=== PATIENT | male | born 1965 | race Caucasian/White ===

== ENCOUNTER → 2019-03-05 11:06 | Outpatient (CLI) | payer BC, SELFPAY ==
--- NOTE | 2019-03-05 11:13 | CA_ITS ---
APPROVED REPORT Bilateral Lower Extremity Venous Study for Charge Auditor: ANUEL Indications Lower Extremity Pain: Risk Factors Obesity RECENT HISTORY OF L TOTAL KNEE PT FELL RECENTLY Vein Imaging CFV (L): compressive, spontaneous, phasic, augmentation SFJ (L): compressive, spontaneous, phasic, augmentation FEM (L): compressive, spontaneous, phasic, augmentation POP (L): compressive, spontaneous, phasic, augmentation PTV (L): Compressible GSV (L): Compressible Peroneals (L):Compressible GAS (L): Compressible Conclusion No evidence of DVT or superficial thrombophlebitis in the veins scanned of the left lower extremity. Electronically signed by : Tesfaye Santana MD 03/05/2019 17:12:54
== END ==
PROVIDERS: PCP Internal Medicine; Visit Provider Orthopaedic Surgery
DX: M79.662 Pain in left lower leg (principal); M79.89 Other specified soft tissue disorders; Z96.652 Presence of left artificial knee joint
CPT/HCPCS: 93971

== ENCOUNTER 2019-03-22 14:30 | Outpatient (RCR) | payer BC, SELFPAY | END 2019-03-22 14:35 | disposition home or self-care (01) | LOC: PT 14:30 | PROVIDERS: Visit Provider Orthopaedic Surgery | DX: Z96.652 Presence of left artificial knee joint (principal); M25.562 Pain in left knee | CPT/HCPCS: 97010; 97014; 97110; 97140; 97163; G0283 ==

== ENCOUNTER → 2019-04-08 17:24 | Outpatient (CLI) | payer BC, SELFPAY ==
[2019-04-08 21:28] LABS: Amphetamine/Metha Screen,Urine Negative ng/mL (<1000); Barbiturates Screen,Urine Negative ng/mL (<200); Benzodiazepines Screen,Urine Negative ng/mL (<200); Cannabinoid Screen,Urine Positive ng/mL (<50); Cocaine Screen,Urine Negative ng/mL (<300); Methadone Screen,Urine Negative ng/mL (<300); Opiate Screen,Urine Negative ng/mL (<300); Phencyclidine Screen,Urine Negative ng/mL (<25)
== END ==
PROVIDERS: Visit Provider Nurse Practitioner Family
DX: Z79.899 Other long term (current) drug therapy (principal)
CPT/HCPCS: 80305

== ENCOUNTER → 2019-06-11 11:49 | Outpatient (CLI) | payer BC, SELFPAY ==
[2019-06-11 13:20] LABS: Anion Gap 13.4 mEq/L (5-15); Blood Urea Nitrogen 28 mg/dL (7-18); Calcium 8.8 mg/dL (8.5-10.1); Carbon Dioxide 27 mmol/L (21.0-32.0); Chloride 106 mmol/L (98-107); Creatinine,Serum 1.66 mg/dL (0.70-1.30); Estimated Glomerular Filt Rate 43 ml/min (>60); GFR (African American) 52 ML/MIN (>60); Glucose 113 mg/dL (74-106); Potassium 4.4 mmoL/L (3.5-5.1); Sodium 142 mmol/L (137-145)
== END ==
PROVIDERS: Visit Provider Nurse Practitioner Family
DX: Z01.818 Encounter for other preprocedural examination (principal)
CPT/HCPCS: 36415; 80048

== ENCOUNTER → 2019-06-21 09:26 | Outpatient (CLI) | payer BC, SELFPAY ==
--- NOTE | 2019-06-21 09:26 | CT_ITS ---
PROCEDURE: CT SOFT TISSUE NECK WO/W CON CLINICAL HISTORY: Nodule L neck Left-sided neck nodule. COMPARISON: No exams were available for comparison TECHNIQUE: Oral Contrast: None IV Contrast: Study is performed without and with contrast. 75 mL Optiray 350 utilized IV. Axial images obtained with sagittal and coronal reformats. All CT scans at the facility use one or more dose reduction, viz: automated exposure control, ma/kV adjustment per patient size (including targeted exams where dose is matched to indication, i.e. head), or iterative reconstruction technique. FINDINGS: A BB is placed on the left neck over the palpable nodule. The nasopharynx has an unremarkable appearance. There is some fullness in the left tonsillar region compared to the right side. The hypopharynx and larynx, glottic region and epiglottis have an unremarkable appearance. Unremarkable thyroid. No obvious base of tongue mass. The parotid and submandibular glands appear unremarkable. There is enlarged left jugular chain lymph node with multilocular central areas of decreased attenuation suggesting necrotic node. This glen area measures 4.5 by 2.3 by 3.6 cm. The node is superior to the level of the hyoid bone and posterior to the submandibular gland consistent with a level 2 node. There are other scattered smaller nodes present in the neck which are nonspecific. No upper mediastinal nodes are evident. Degenerative disc disease is present at C5-C6 and C6-C7. IMPRESSION: Left cervical adenopathy with a multilocular enlarged node in the uvula digastric region/level 2 node. There is slight fullness in the left palatine tonsil. Direct visualization is suggested. The enlarged node could be neoplastic or reactive. If the node does not decrease in size with antibiotic therapy then, fine needle aspiration could be performed with ultrasound guidance. Dictated by: Tesfaye Santana MD 06/22/2019 05:43 Electronically signed by Tesfaye Santana MD in [place] 06/22/2019 05:43
== END ==
PROVIDERS: PCP Nurse Practitioner Family; Visit Provider Nurse Practitioner Family
DX: R22.1 Localized swelling, mass and lump, neck (principal)
CPT/HCPCS: 70492; Q9967

== ENCOUNTER → 2019-07-06 12:27 | Outpatient (CLI) | payer BC, SELFPAY ==
--- NOTE | 2019-07-06 12:30 | US_ITS ---
PROCEDURE: US FNA LYMPH NODE CLINICAL INDICATION: ENLARGES LYMPH NODE Enlarged left-sided neck lymph nodes as seen on recent CT scan COMPARISON: CT SOFT TISSUE NECK WO/W CON from 06/21/2019 TECHNIQUE: Pre biopsy ultrasound performed of the left neck confirming multiple enlarged lymph nodes. The largest node the was approximately 3.8 by 2 cm which was targeted for biopsy. Following obtaining informed consent, using aseptic technique and local anesthesia with buffered lidocaine, fine-needle aspiration was performed of the nodule of interest using sonographic guidance. Four passes were made into the nodule with a 21 gauge needle. Specimen was submitted for cytology and RPMI. These 4 passes were done of the same node but put in 2 different solutions as a was a moderate amount of blood in the initial specimen FINDINGS: CYTOLOGY: Necrotic an atypical squamous epithelial cells suspicious for squamous cell carcinoma. Please see cytology report. Flow cytometry was performed showing no significant lymphoid immuno phenotypic abnormalities IMPRESSION: Uneventful ultrasound-guided fine needle aspiration of the left-sided neck lymph nodes showing suspicious findings The patient tolerated the procedure well without evidence of immediate complications and left the ultrasound suite in stable condition. Dictated by: Tesfaye Santana MD 07/12/2019 10:14 Electronically signed by Tesfaye Santana MD in [place] 07/12/2019 10:14
== END ==
PROVIDERS: PCP Nurse Practitioner Family; Visit Provider Nurse Practitioner Family
DX: R59.0 Localized enlarged lymph nodes (principal)
CPT/HCPCS: 10005; 76942; 87070; 87205

== ENCOUNTER 2019-08-05 06:01 | Day surgery (SDC) | payer BC, SELFPAY ==
[2019-08-05] VITALS (18 sets, daily range): BP systolic 104–164; BP diastolic 51–94; PULSE 77–109; RESP 13–26; TEMP 36.1–36.8; O2SAT 84–100; BMI 40.8
--- NOTE | 2019-08-05 06:24 | ECG_ITS ---
APPROVED REPORT Exam: Resting ECG HR:76 bpm ECG Measurements Heart Rate 76 AXES DC 140 P 9 QRSd 102 QRS -28 QT 420 T 36 QTc 472 <Conclusion> Normal sinus rhythm Normal ECG Electronically signed by : Eugene Katz, 08/07/2019 06:52:48
[2019-08-05 06:55] LABS: Basophils # 0.1 K/mm3 (0-0.2); Basophils % 0.5 % (0.1-2.0); Eosinophils # 0.2 K/mm3 (0.0-0.4); Eosinophils % 2.4 % (0.1-12.0); Hematocrit 41.1 % (42.0-52.0); Hemoglobin 13.3 g/dL (14.1-18.0); Lymphocytes # 2.1 K/mm3 (0.7-4.5); Mean Corpuscular HGB Conc 32.4 g/dL (31.8-35.4); Mean Corpuscular Hemoglobin 30.4 pg (27.0-31.2); Mean Corpuscular Volume 93.6 fl (80-94); Mean Platelet Volume 9.3 fl (7.4-10.4); Monocytes # 0.6 K/mm3 (0.1-1.0); Monocytes % 6.7 % (1.7-9.3); Neutrophils # 5.9 K/mm3 (1.8-7.8); Neutrophils % 66.5 % (37.0-80.0); Platelet Count 144 K/mm3 (142-424); Red Blood Count 4.39 M/mm3 (4.60-6.20); Red Cell Distribution Width 15.4 % (11.5-17.5); White Blood Count 8.8 K/mm3 (4.8-10.8)
[2019-08-05 06:58] LABS: Chloride 104 mmol/L (98-107); Potassium 3.2 mmoL/L (3.5-5.1); Sodium 136 mmol/L (136-145)
[2019-08-05 07:01] LABS: Anion Gap 8.2 mEq/L (5-15); Blood Urea Nitrogen 19 mg/dl (9-20); Carbon Dioxide 27 mmol/L (22.0-30.0); Creatinine Clearance Estimated 149 mL/min (50-200); Estimated Glomerular Filt Rate 69 ml/min (>60); GFR (African American) 84 ML/MIN (>60)
[2019-08-05 07:02] LABS: Calcium 8.6 mg/dl (8.4-10.2); Glucose 146 mg/dl (74-100)
--- NOTE | 2019-08-05 07:15 | HMH.ANESCL ---
[facility] Anesthesia Checklist - Patient Identification Patient Identification: Arm Band, Verbal (Name & ) - Structural Data Admitted From: Home Planned Operative Procedure/s: Tonsillectomy, laryngoscopy, esphagoscopy Consent for Planned Operative Procedure(s) Verified: Yes Verified Documents: Surgical Consent, History and Physical - NPO Status Verified Time NPO: 00:00 - Chart Verification Results Verified: CBC, BMP - Additional verifications Anesthesia Reactions: Yes (dry heaving) Hx Blood Transfusions: No Blood Transfusion Reaction: No - Airway Assessment C-Spine Mobility Assessed: Yes TMJ Mobility Assessed: Yes Dentition: Good Dentition - Neurological Assessment Level of Consciousness: Awake, Alert, Appropriate, Follows Commands Hx Seizures: No Numbness or tingling in extremities: Yes (Left lower extremity) - Anesthesia Plan Anesthesia Risk discussed: Yes Anesthesia Plan: Verified ASA Class: III Anesthesia Type: General [facility] History I have reviewed the patient's past medical history: Yes Medical History: Reports:: Cancer (tonsil), Chronic Obstructive Pulmonary Disease (COPD), Gastroesophageal Reflux Disease(GERD), Hypertension Denies:: Diabetes Mellitus Type 1, Diabetes Mellitus Type 2, Internal Pacemaker, MRSA, Seizures *Have you ever received a pneumonia vaccine?: No *Have you received a flu vaccine this season?: No Other Medical History: Denies: Blood Transfusion Reaction Comment:: morbid obesity Anesthesia experience/problems:: PONV Laterality Cases: Left: Other, Bilateral: Arthroscopy Knee Other Surgeries: Yes: Cholecystectomy, Colonoscopy, EGD, Hernia Repair. No: Pacemaker Amputation: No Fractures: No - *Social History Educational Level: Completed High School Smoking Status: Former smoker Tobacco Type: cigarettes Smoking End Date: 1.5 years ago Alcohol Intake: current Alcohol Intake Frequency:: holidays/special occasions only Substance Use Type: marijuana Last Used Substance: days (ago) *Occupational Status:: retired Housing: house Household Members: friend(s) *Travel in the last 8 weeks: None Family Hx:: Cancer, Diabetes, Heart Attack, Hyperlipidemia, Hypertension, Substance abuse
--- NOTE | 2019-08-05 09:00 | P.PN_ITS ---
[facility] Anesthesia Record Part I Intake, IV Amount: 900 Estimated blood loss (mL): 50 Urine output (mL): 0 (NM) Blood Products used (#): none Blood Pressure: 150/91 SaO2: 94 Pulse Rate: 99 Respiratory Rate: 13 Temperature: 97.0 F Patient is:: Awake, Drowsy, Stable Stable to PACU at:: 08:54
--- NOTE | 2019-08-05 10:45 | SUR.PHASEII ---
Zofran 4mg IV given per order.
--- NOTE | 2019-08-05 10:50 | PC.NURSE ---
Dr Ceja at bedside, pt still experiencing dry heaves occasionally but denies nausea at this time.
--- NOTE | 2019-08-05 11:35 | HMH.OPNOTE ---
Date of procedure: 08/05/19 Pre-op Diagnosis:: 1. Probable malignancy left deep cervical nodes 2. Possible primary left tonsil 3. Prominent lymphoid tissue base of tongue Post-op Diagnosis:: same Procedure performed:: 1. Microlaryngoscopy 2. Left radical tonsillectomy Surgeon:: Antony Ceja MD [employer] TECHNICIAN:: Wu Lackey Anesthesia: GETA Estimated blood loss (mL): 12 Operative findings:: same Operative note:: With the patient under general anesthesia using the anterior commissure laryngoscope, the larynx base of tongue and vallecula were all examined. There was some prominent lymphoid tissue at the base of tongue but no lesions or ulcerations and nothing that required biopsy. A Maravilla Earle gag was inserted, and the throat was examined. The left tonsil was enlarged and had a lump in the base area. Using the harmonic scalpel a left radical tonsillectomy was done and the tonsil was submitted for pathology. Bleeding was less than 15 cc and stopped with suction cautery. The patient had a large tonsil cavity and accordingly Surgicel snow was placed in the cavity and the pillars were oversewn with 2-0 Vicryl. The patient tolerated the procedure well and was sent to recovery in good general condition. Condition: stable Disposition: PACU Complications:: none
--- NOTE | 2019-08-05 12:11 | P.PN_ITS ---
[facility] Anesthesia Record Part II Discharge Time: 10:05 Destination: Home PACU nurse assessment reviewed?: Yes Patient Condition:: Good Anesthesia Complications:: None Swallowing reflex intact?: Yes Cyanosis?: No Blood Pressure: 126/77 Pulse Rate: 89 Temperature: 97.7 F Mental Status: Alert & Oriented (drowsy) Pain level:: 0 (mild pain when swallowing) Nausea and/or vomitting:: None Intake, IV Amount: 0
== END 2019-08-05 11:00 | disposition home or self-care (01) ==
LOC: OR 06:02
PROVIDERS: PCP Nurse Practitioner Family; Visit Provider Otolaryngology
PROC: (CPT 31526; principal; 2019-08-05 07:30)
DX: D00.08 Carcinoma in situ of pharynx (principal); K14.8 Other diseases of tongue; J44.9 Chronic obstructive pulmonary disease, unspecified; I10 Essential (primary) hypertension; E66.9 Obesity, unspecified; Z96.652 Presence of left artificial knee joint; Z79.899 Other long term (current) drug therapy; Z79.82 Long term (current) use of aspirin; K21.9 Gastro-esophageal reflux disease without esophagitis; F12.90 Cannabis use, unspecified, uncomplicated; Z87.891 Personal history of nicotine dependence; R59.0 Localized enlarged lymph nodes; Z68.41 Body mass index [BMI] 40.0-44.9, adult
CPT/HCPCS: 31526; 42826; 80048; 85025; 93005; 96374; 96375; J2405